=== PATIENT | male | born 1995 | race Two or more races ===

== ENCOUNTER 2017-03-17 13:49 | Emergency (ER) | payer SELFPAY ==
[2017-03-17 14:01] VITALS: BMI 18.4
--- NOTE | 2017-03-17 14:05 | ED PDOC ---
HPI: Psych/Substance Abuse Time Seen by Provider: 03/17/17 14:00 Chief Complaint (Nursing): Substance Abuse Chief Complaint (Provider): Substance abuse History Per: Patient, EMS, Family Additional Complaint(s): Pt in ED for possible substance abuse. As per EMS,pt admits "to taking 4 sticks of weed and 2 tabs of Xanax". Pt uncooperative and verbally abusive towards staff. Pt tells financial underwriter, "I usually do 8 mg Ativan without a problem, this time I threw up." Past Medical History Reviewed: Nursing Documentation, Vital Signs - Medical History PMH: No Chronic Diseases - Surgical History Surgical History: No Surg Hx - Family History Family History: States: No Known Family Hx - Living Arrangements Living Arrangements: With Friends/Others - Social History Current smoker - smoking cessation education provided: No Alcohol: Social Drugs: Cannabis, Opiates - Home Medications Home Medications: Ambulatory Orders Medication Instructions Recorded No Known Home Med 03/17/17 - Allergies Allergies/Adverse Reactions: Allergies Allergy/AdvReac Type Severity Reaction Status Date / Time No Known Allergies Allergy Verified 03/17/17 14:00 Review of Systems ROS Statement: Except As Marked, All Systems Reviewed And Found Negative Physical Exam - Reviewed Nursing Documentation Reviewed: Yes Vital Signs Reviewed: Yes - Physical Exam Appears: Positive for: Well, Non-toxic, No Acute Distress Head Exam: Positive for: ATRAUMATIC, NORMAL INSPECTION, NORMOCEPHALIC Skin: Positive for: Normal Color, Warm, DRY Eye Exam: Positive for: EOMI, Normal appearance, PERRL ENT: Positive for: Normal ENT Inspection Neck: Positive for: Normal, Painless ROM Cardiovascular/Chest: Positive for: Regular Rate, Rhythm Respiratory: Positive for: CNT, Normal Breath Sounds Gastrointestinal/Abdominal: Positive for: Normal Exam, Bowel Sounds, Soft Back: Positive for: Normal Inspection Extremity: Positive for: Normal ROM Neurologic/Psych: Positive for: Alert, Oriented - Laboratory Results Result Diagrams: 03/17/17 14:25 03/17/17 14:25 Medical Decision Making Medical Decision Making: Pt combative and aggressive with staff, placed in 4 point restraints upon arrival and given Haldol and Ativan to relieve him of his agitation On re-eval. pt more calm, agreeable to allow RN to draw labs On second re-eval, Pt asleep. Restraints removed. Labs resulted and reviewed wit pt who demonstrated full understanding Disposition - Clinical Impression Clinical Impression: Substance abuse - Patient ED Disposition Is Patient to be Admitted: No - Disposition Disposition: Routine/Home Disposition Time: 05:00 Condition: STABLE Instructions: Polysubstance Abuse (ED) Forms: [facility] ([place])
[2017-03-17 14:06] VITALS: RESP 16; TEMP 97.9
[2017-03-17 14:39] LABS: BASO # 0.1 K/uL (0.0-0.2); BASO % 0.6 % (0.0-2.0); EOS # 0.3 K/uL (0.0-0.7); EOS % 2.6 % (0.0-4.0); HEMATOCRIT 41.1 % (35.0-51.0); LYMPH # 1.6 K/uL (1.0-4.3); MEAN CELL VOLUME 87.3 fl (80.0-94.0); MEAN CORPUSCULAR HEMOGLOBIN 29.8 pg (27.0-31.0); MEAN CORPUSCULAR HGB CONC 34.1 g/dL (33.0-37.0); MONO # 1.1 K/uL (0.0-0.8); MONO % 8.8 % (0.0-10.0); NEUT # 9.8 K/uL (1.8-7.0); NRBC % 0.1 % (0.0-0.0); WHITE BLOOD COUNT 12.9 K/uL (4.8-10.8)
[2017-03-17 14:53] LABS: ALB/GLOB RATIO 1.5 (1.0-2.1); ALCOHOL SERUM < 10 mg/dl (0-10); ALKALINE PHOSPHATASE 51 U/L (38-126); ALT/SGPT 34 U/L (21-72); AST/SGOT 18 U/L (17-59); BILIRUBIN,TOTAL 0.5 mg/dl (0.2-1.3); BLOOD UREA NITROGEN 15 mg/dl (9-20); CALCIUM 9.3 mg/dL (8.4-10.2); CARBON DIOXIDE 25 mmol/L (22-30); CHLORIDE 103 mmol/L (98-107); GFR AFRICAN-AMERICAN > 60; GLUCOSE,RANDOM 97 mg/dL (75-110); POTASSIUM 3.8 MMOL/L (3.6-5.0); SODIUM 141 mmol/l (132-148); TOTAL PROTEIN 7.8 G/DL (6.3-8.2)
[2017-03-17 15:26] VITALS: O2SAT 100
[2017-03-17 19:28] VITALS: BP 110/72; PULSE 77
== END 2017-03-17 20:11 | disposition home or self-care (01) ==
LOC: H.ER 13:49
DX: F19.10 Other psychoactive substance abuse, uncomplicated (principal)
CPT/HCPCS: 80053; 85025; 96372; 99285; G0480; J1630